=== PATIENT | female | born 2000 | race Caucasian/White ===

== ENCOUNTER 2021-05-17 15:31 | Emergency (ER) | payer OTHER, SELFPAY ==
--- NOTE | ~2021-05-17 | XR_ITS ---
EXAMINATION: XR ELBOW, LEFT CLINICAL INFORMATION: Left elbow pain status post fall. COMPARISON: None TECHNIQUE: AP, lateral, and oblique views of the left elbow. FINDINGS: There is no acute fracture or dislocation. The joint spaces are unremarkable. No significant joint effusion is seen. Mild soft tissue swelling is seen medial to the distal humerus. XR/XR elbow LT min 3V IMPRESSION: Mild soft tissue swelling medial to the distal humerus without acute underlying osseous abnormality.
[2021-05-17 15:37] VITALS: BP 138/86; PULSE 80; RESP 20; TEMP 36.8; O2SAT 99; BMI 21.2
--- NOTE | 2021-05-17 15:39 | ED.FALL ---
HPI - Fall General Chief Complaint: Extremity Injury, Upper <Janis Dueñas NP - Last Filed: 05/17/21 15:41> Stated Complaint: elbow inj <LIANNE Reese Last Filed: 05/17/21 15:41> Time Seen by Provider: 05/17/21 15:37 <Janis Dueñas NP - Last Filed: 05/17/21 15:41> Source: patient <ABHINAV Marsh - Last Filed: 05/18/21 01:00> Mode of arrival: ambulatory <ABHINAV Marsh - Last Filed: 05/18/21 01:00> History of Present Illness HPI Narrative: 20-year-old female presenting to the ED complaining of left elbow pain/swelling s/p hyperextension injury while playing volleyball on Monday. Reports another player hit arm while was extended. Reports decreased flexion and extension secondary to pain/swelling. Denies numbness, tingling, weakness, fever <ABHINAV Marsh - Last Filed: 05/18/21 01:00> MD complaint: fall <ABHINAV Marsh - Last Filed: 05/18/21 01:00> Related Data Home Medications: Previous Rx's Medication Instructions Recorded acetaminophen 500 mg tablet 500 mg PO Q6H PRN #20 tab 05/17/21 (Tylenol Extra Strength) ibuprofen 800 mg tablet 800 mg PO Q8H PRN #14 tab 05/17/21 <LIANNE Reese Last Filed: 05/17/21 15:41> Allergies/Adverse Reactions: Allergies Allergy/AdvReac Type Severity Reaction Status Date / Time No Known Allergies Allergy Verified 05/17/21 15:37 <LIANNE Reese Last Filed: 05/17/21 15:41> Review of Systems Review of Systems: Constitutional: No Fever, No Chills ENT/Mouth: No Ear Pain, No Nasal Congestion, No Sinus Pain, No Hoarseness, No sore throat Cardiovascular: No Chest Pain, No SOB Respiratory: No Cough, No Sputum, No Wheezing Gastrointestinal: No Nausea, No Vomiting, No Diarrhea, No Constipation, No Abdominal pain Genitourinary:, No Dysuria, No Urinary Frequency, No Hematuria Musculoskeletal: + joint pain, No Myalgias, + Joint Swelling Skin: No Skin Lesions, No rash Neuro: No Weakness, No Numbness, No Paresthesias <ABHINAV Marsh - Last Filed: 05/18/21 01:00> Yes all other systems are reviewed and are negative <ABHINAV Marsh - Last Filed: 05/18/21 01:00> [facility] Past Medical History Attestation statement: The following information was validated with the patient. <ABHINAV aMrsh - Last Filed: 05/18/21 01:00> Social History Social History: Social History Advance Directives: No Advance Directives Information Provided: Yes <Janis Dueñas NP - Last Filed: 05/17/21 15:41> Physical Exam Vital Signs: Vital Signs: Last Vital Signs Temp 98.3 F 05/17/21 15:37 Pulse 80 05/17/21 15:37 Resp 20 05/17/21 15:37 BP 138/86 05/17/21 15:37 Pulse Ox 99 05/17/21 15:37 Body Mass Index 21.2 <Janis Dueñas NP - Last Filed: 05/17/21 15:41> Vital Signs: Last Vital Signs Temp 98.3 F 05/17/21 15:37 Pulse 80 05/17/21 15:37 Resp 20 05/17/21 15:37 BP 138/86 05/17/21 15:37 Pulse Ox 99 05/17/21 15:37 Body Mass Index 21.2 <ABHINAV Marsh - Last Filed: 05/18/21 01:00> Const: General: cooperative and healthy appearing <ABHINAV Marsh - Last Filed: 05/18/21 01:00> Orientation/consciousness: patient oriented x3 <ABHINAV Marsh - Last Filed: 05/18/21 01:00> Limitations: no limitations <ABHINAV Marsh - Last Filed: 05/18/21 01:00> HENMT: Head: Yes normal to inspection <ABHINAV Marsh - Last Filed: 05/18/21 01:00> Ears: hearing grossly normal bilaterally <ABHINAV Marsh - Last Filed: 05/18/21 01:00> General nose exam: Normal external nose present <ABHINAV Marsh - Last Filed: 05/18/21 01:00> Face and sinus: Yes normal facial exam <ABHINAV Marsh - Last Filed: 05/18/21 01:00> Eyes: General: appearance normal, both eyes and all related structures <Petra Castelan PA - Last Filed: 05/18/21 01:00> EOM: EOMs intact bilaterally <ABHINAV Marsh - Last Filed: 05/18/21 01:00> Neck: Neck: Yes normal visual inspection and Yes no meningeal signs <ABHINAV Marsh - Last Filed: 05/18/21 01:00> Resp: Effort & Inspection: normal respiratory effort and no respiratory distress <ABHINAV Marsh - Last Filed: 05/18/21 01:00> Cardio: Rate: regular rate <ABHINAV Marsh - Last Filed: 05/18/21 01:00> Peripheral pulses: radial pulses present <ABHINAV Marsh - Last Filed: 05/18/21 01:00> Skin: Rashes: no rashes <ABHINAV Marsh - Last Filed: 05/18/21 01:00> Wounds: no wounds <ABHINAV Marsh - Last Filed: 05/18/21 01:00> Neuro: General: patient oriented x3 and no meningeal signs <ABHINAV Marsh - Last Filed: 05/18/21 01:00> Gait exam (Neuro): Normal gait present <ABHINAV Marsh - Last Filed: 05/18/21 01:00> Extrem: Other: Left elbow with notable swelling. Tender to palpation. No erythema/crepitus. Decreased extension and flexion secondary to pain/swelling. Neurovascular intact distally <ABHINAV Marsh - Last Filed: 05/18/21 01:00> Course Course Course Narrative: 1539-This is rapid medical exam. Fall playing volleyball with a second player landing on her elbow on monday. Will need x-rays. Deferred additional HPI. ROS and PE to primary provider. <Janis Dueñas NP - Last Filed: 05/17/21 15:41> 1539-This is rapid medical exam. Fall playing volleyball with a second player landing on her elbow on monday. Will need x-rays. Deferred additional HPI. ROS and PE to primary provider. -184--XR elbow LT min 3V IMPRESSION: Mild soft tissue swelling medial to the distal humerus without acute underlying osseous abnormality. >> patient already in sling she brought from home. Discussed with patient she needs to follow up with Orthopedics, reports she has an appointment tomorrow. Likely ligamental/tendon injury. May need MRI outpatient <ABHINAV Marsh - Last Filed: 05/18/21 01:00> MDM - Fall MDM Narrative Medical decision making narrative: On exam VSS, NAD, physical exam as above. Concern for ligamental/tendon injury secondary to hyperextension. Rule out fracture. Lower concern for dislocation. Will obtain x-rays <ABHINAV Marsh - Last Filed: 05/18/21 01:00> Medical Records Attestation: I reviewed the patient's medical records. <ABHINAV Marsh - Last Filed: 05/18/21 01:00> Lab Data Attestation: I reviewed the patient's lab results. <ABHINAV Marsh - Last Filed: 05/18/21 01:00> Discharge Plan Discharge Clinical Impression: Elbow sprain <Janis Dueñas NP - Last Filed: 05/17/21 15:41> Patient Disposition: Home, Self-Care <Janis Dueñas NP - Last Filed: 05/17/21 15:41> Instructions: Elbow Sprain (ED), R.I.C.E. Treatment (ED) <Janis Dueñas NP - Last Filed: 05/17/21 15:41> Additional Instructions: Your x-ray shows soft tissue swelling of your distal humerus without fracture Continue to wear sling Ice and elevate Take Tylenol and ibuprofen around the clock every 6-8 hours as prescribed Please follow-up with orthopedic doctor as scheduled tomorrow <Janis Dueñas NP - Last Filed: 05/17/21 15:41> Prescriptions: New ibuprofen 800 mg tablet 800 mg PO Q8H PRN (Reason: pain) Qty: 14 RF: 0 acetaminophen [Tylenol Extra Strength] 500 mg tablet 500 mg PO Q6H PRN (Reason: pain or fever) Qty: 20 RF: 0 <Janis Dueñas NP - Last Filed: 05/17/21 15:41> Referrals: Ana Ojeda PA-C [Physician Adjunct Professor] - 1 week <Janis Dueñas NP - Last Filed: 05/17/21 15:41> Stand Alone Forms: Work/School Release <Janis Dueñas NP - Last Filed: 05/17/21 15:41> Interventions: ED Discharge Assessment Last Done: 05/17/21 19:06 <Janis Dueñas NP - Last Filed: 05/17/21 15:41> Discharge Date/Time: 05/17/21 19:10 <Janis Dueñas NP - Last Filed: 05/17/21 15:41>
== END 2021-05-17 19:10 | disposition home or self-care (01) ==
PROVIDERS: Emergency Provider Internal Medicine
DX: M25.522 Pain in left elbow (principal); Z79.899 Other long term (current) drug therapy
CPT/HCPCS: 73080; 99283; 99284